=== PATIENT | male | born 1970 | race American Indian/Alaskan Native ===

== ENCOUNTER 2017-12-18 14:47 | Emergency (ER) | payer SELFPAY ==
[2017-12-18 17:07] LABS: Hematocrit 50.4 % (35.5-45.6); Hemoglobin 17.3 gm/dl (11.8-15.2); Mean Corpuscular HGB Conc 34 % (32-34); Mean Corpuscular Hemoglobin 34 pg (28-32); Mean Corpuscular Volume 98 fl (84-94); Platelet Count 252 K/mm3 (140-440); Red Blood Count 5.13 M/mm3 (3.65-5.03); Red Cell Distribution Width 13.1 % (13.2-15.2)
[2017-12-18 17:11] LABS: Bilirubin,Urine NEG (Negative); Blood,Urine NEG (Negative); Color,Urine Yellow (Yellow); Hyaline Casts,Urine 1 /LPF; Mucus,Urine FEW /HPF; Protein,Urine <15 mg/dL mg/dL (Negative); RBC,Urine < 1.0 /HPF (0.0-6.0); Urobilinogen,Urine < 2.0 mg/dL (<2.0); WBC,Urine < 1.0 /HPF (0.0-6.0)
[2017-12-18 17:16] LABS: BUN/Creatinine Ratio 8; Blood Urea Nitrogen 7 mg/dL (9-20); Calcium 9.5 mg/dL (8.4-10.2); Hemolysis Index 11
[2017-12-18 17:17] VITALS: BP 152/90
[2017-12-18 18:12] LABS: Amphetamine Screen,Urine PRESUMPTIVE NEGATIVE; Benzodiazepines Screen,Urine PRESUMPTIVE NEGATIVE; Cocaine Screen,Urine PRESUMPTIVE NEGATIVE; Methadone Screen,Urine PRESUMPTIVE NEGATIVE; Opiate Screen,Urine PRESUMPTIVE NEGATIVE
[2017-12-18 18:25] LABS: Cannabinoid Screen,Urine PRESUMPTIVE POSITIVE
--- NOTE | 2017-12-18 18:40 | Emergency Department Report ---
ED Seizure HPI - General Chief Complaint: Seizure Stated Complaint: SEIZURE Time Seen by Provider: 12/18/17 16:48 Source: patient, EMS Mode of arrival: Stretcher Limitations: No Limitations - History of Present Illness Initial Comments: This is a 47-year-old gentleman with a past medical history significant for seizure disorder as well as hypertension and asthma with no past surgical history and who is an occasional smoker, alcohol user as well as partaking and occasional marijuana use for Relation. He states that he was in his usual state of health and had a seizure while he was sleeping. He does admit to being under a lot of stress at his job and with his social life. Mother of his child is apparently a source of stress for him as well. He reports that he was at [place] about a month ago and got medications but it was too expensive for him to fill. He states that this has happened before where he has had seizures in his sleep. They last for roughly 1 minute and then subside. Apparently his significant other who is the mother of his child called EMS. The patient was brought to the hospital. The patient is alert and oriented 3 without any distress at this time. He is able to recall the events. He is not postictal. He denies any vomiting or diarrhea does admit to some nausea. Denies chest pain or shortness of breath. He admits to being anxious. Complaint: seizure -: Sudden, minutes(s) (1) Description of Episode: tonic-clonic movement -: minutes(s) (1) Seizure History: known seizure disorder Place: home Possible Precipitating Event: medication (ran out of medication) Associated Symptoms: denies other symptoms (except for nausea.) Treatments Prior to Arrival: none - Related Data Allergies Allergy/AdvReac Type Severity Reaction Status Date / Time No Known Allergies Allergy Unverified 12/18/17 15:44 ED Review of Systems ROS: Stated complaint: SEIZURE Other details as noted in HPI Comment: All other systems reviewed and negative Constitutional: see HPI Eyes: as per HPI ENT: as per HPI Respiratory: see HPI Cardiovascular: as per HPI Endocrine: see HPI Gastrointestinal: as per HPI Genitourinary: as per HPI Musculoskeletal: as per HPI Skin: as per HPI Neurological: as per HPI Psychiatric: as per HPI Hematological/Lymphatic: as per HPI ED Past Medical Hx - Past Medical History Previous Medical History?: Yes Hx Seizures: Yes Hx Asthma: Yes - Social History Smoking Status: Smoker, Current Status Unknown Substance Use Type: Alcohol, Marijuana ED Physical Exam - General Limitations: No Limitations General appearance: alert, in no apparent distress - Head Head exam: Present: atraumatic, normocephalic, normal inspection - Eye Eye exam: Present: normal appearance, PERRL, EOMI - ENT ENT exam: Present: normal exam, normal orophraynx - Neck Neck exam: Present: normal inspection, full ROM - Respiratory Respiratory exam: Present: normal lung sounds bilaterally. Absent: respiratory distress, wheezes, rales, rhonchi - Cardiovascular Cardiovascular Exam: Present: regular rate, normal rhythm, normal heart sounds - GI/Abdominal GI/Abdominal exam: Present: soft - Rectal Rectal exam: Present: deferred - Extremities Exam Extremities exam: Present: normal inspection, full ROM - Back Exam Back exam: Present: normal inspection, full ROM - Neurological Exam Neurological exam: Present: alert, oriented X3, CN II-XII intact - Psychiatric Psychiatric exam: Present: normal affect, normal mood, anxious - Skin Skin exam: Present: warm, dry, intact, normal color ED Course Vital Signs 12/18/17 17:16 Temperature 98.1 F Pulse Rate 72 Respiratory 18 Rate Blood Pressure 152/90 [Left] O2 Sat by Pulse 99 Oximetry - Reevaluation(s) Reevaluation #1: 12/18/17 18:36 The patient has not had any type of seizure activity here in the emergency room. He has been cooperative and has been able to follow commands and is alert and oriented 3. I explained to him that we can prescribe her medications today that are inexpensive for his seizure disorder but that he will need to follow up with his primary care physician and his neurologist. He expresses understanding. His concern is is that he will from his seizure disorder. I explained to him that he should get treatment and stay on treatment that works for him and have regular follow-ups. I advised him to not drive a motor vehicle. Advised to not operate any heavy machinery. He expresses understanding. Today I will start the patient on Dilantin 200mg PO BID. We will also give him 1 mg of Ativan here in the emergency room. He is to follow-up with his primary care doctor of choice within the next 48 hours. ED Medical Decision Making - Lab Data Result diagrams: 12/18/17 16:57 12/18/17 16:57 Critical care attestation.: If time is entered above; I have spent that time in minutes in the direct care of this critically ill patient, excluding procedure time. ED Disposition Clinical Impression: Seizure disorder Disposition: -01 TO HOME OR SELFCARE Is pt being admited?: No Does the pt Need Aspirin: No Condition: Stable Instructions: Recurrent Seizures Adult (ED) Additional Instructions: Rest, fluids, take medications as prescribed, return as needed, watch for worsening, or new symptoms, follow up with your primary care doctor or neurologist within 24 - 48 hours, do not drive a motor vehicle or operate heavy machinery. Referrals: PRIMARY CARE, [Primary Care Provider] - 3-5 Days
[2017-12-18] MEDS ORDERED: ATIVAN IV ONE (18:42)
== END 2017-12-18 19:28 | disposition home or self-care (01) ==
LOC: ED 14:47
DX: G40.909 Epilepsy, unspecified, not intractable, without status epilepticus (principal); F12.10 Cannabis abuse, uncomplicated
CPT/HCPCS: 36415; 80048; 80185; 80307; 81001; 82962; 85027; 96374; 99284; G0480; J2060; 80320

== ENCOUNTER 2017-12-27 09:20 | Emergency (ER) | payer OTHER ==
[2017-12-27] MEDS ORDERED: KEPPRA 1,000 MG/NS 0.75% 100ML 1,000 MG/100 ML BAG IV ONE ×2 (09:50→10:03)
[2017-12-27 10:09] LABS: Basophils % (Auto) 1.2 % (0.0-1.8); Eosinophils # (Auto) 0.3 K/mm3 (0.0-0.4); Eosinophils % (Auto) 8.1 % (0.0-4.3); Hematocrit 47.9 % (35.5-45.6); Lymphocytes # (Auto) 1.4 K/mm3 (1.2-5.4); Lymphocytes % (Auto) 34.6 % (13.4-35.0); Mean Corpuscular HGB Conc 33 % (32-34); Mean Corpuscular Hemoglobin 34 pg (28-32); Mean Corpuscular Volume 101 fl (84-94); Monocytes # (Auto) 0.3 K/mm3 (0.0-0.8); Platelet Count 217 K/mm3 (140-440); Red Blood Count 4.77 M/mm3 (3.65-5.03); Red Cell Distribution Width 13.6 % (13.2-15.2)
[2017-12-27 10:23] LABS: Alanine Aminotransferase 20 units/L (7-56); Albumin 4.4 g/dL (3.9-5); BUN/Creatinine Ratio 11; Blood Urea Nitrogen 9 mg/dL (9-20); Calcium 8.9 mg/dL (8.4-10.2); Hemolysis Index 27
[2017-12-27] MEDS ORDERED: NACL 0.9% 0 ML IR ONE (11:09)
--- NOTE | 2017-12-27 11:33 | Cat Scan Report ---
CT HEAD WITHOUT CONTRAST: HISTORY: Seizure. TECHNIQUE: Sequential 2.5mm CT images. COMPARISON: none. FINDINGS: Cerebral Parenchyma: Within normal limits. Cerebellum: Within normal limits. Brainstem: Within normal limits. Ventricles: Normal. Sella: Normal. Extra-axial spaces: Normal. Basal Cisterns: Normal. Intracranial Hemorrhage: None. Midline Shift: None. Calvarium: Normal. Sinuses: Normal. Mastoid Air Cells: Normal. Visualized Orbits: Normal. IMPRESSION: Cranial CT scan within normal limits.
[2017-12-27] MEDS ORDERED: TORADOL IV ONE (11:43)
--- NOTE | 2017-12-27 11:49 | Emergency Department Report ---
ED Seizure HPI - General Chief Complaint: Seizure Stated Complaint: SEIZURE Time Seen by Provider: 12/27/17 10:33 Source: EMS Mode of arrival: Stretcher Limitations: Other - History of Present Illness Initial Comments: 47-year-old male with a past medical history of seizures presents to the hospital complaining of procedure prior to arrival. Patient has been noncompliant with seizure medication due to cost. He was recently seen and evaluated here December 18 for seizure and prescribed Dilantin. Patient states he was planning to fill the medication today since he has money for the meds at this time. Triage indicates that patient has a brain tumor but patient deniesthat he has a family history of brain tumors but not a personal history. He has had seizures for many years. He complains of headache since his last seizure on the and generalized upper posterior thorax and shoulder pain since this seizure and fall. Pain is rated at 9/10 intensity, constant, and worse with movement. - Related Data Previous Rx's Medication Instructions Recorded Last Taken Type Phenytoin Sodium Extended 200 mg PO BID #60 capsule 12/18/17 Unknown Rx [Dilantin] Allergies Allergy/AdvReac Type Severity Reaction Status Date / Time No Known Allergies Allergy Verified 12/27/17 09:59 ED Review of Systems ROS: Stated complaint: SEIZURE Other details as noted in HPI Comment: All other systems reviewed and negative Other: Constitutional: No fevers chills Eyes: No eye pain visual changes ENT: No ear pain or throat pain Neck: Denies pain Respiratory: Denies cough wheezing shortness of breath Cardiovascular: Denies chest pain, palpitations, syncope GI: Denies abdominal pain, nausea, vomiting, diarrhea : Denies dysuria Musculoskeletal: as per hpi Skin: Denies rash, lesions, erythema Neurologic: Denies numbness, weakness Psychiatric: Denies suicidal ideation, hallucinations ED Past Medical Hx - Past Medical History Hx Seizures: Yes Hx Asthma: Yes - Social History Smoking Status: Current Some Day Smoker Substance Use Type: Alcohol, Marijuana - Medications Home Medications: Home Medications Medication Instructions Recorded Confirmed Last Taken Type Phenytoin Sodium Extended 200 mg PO BID #60 capsule 12/18/17 Unknown Rx [Dilantin] ED Physical Exam - General Limitations: Other - Other Other exam information: General: No limitations, patient is alert in no acute distress Head exam: Atraumatic, normocephalic Eyes exam: Normal appearance, pupils equal reactive to light, extraocular movements intact ENT: Moist mucous membrane, no tongue laceration Neck exam: Normal inspection, full range of motion, no meningismus nontender Respiratory exam: Clear to auscultation bilateral, no wheezes, rales, crackles Cardiovascular: Normal rate and rhythm, normal heart sounds Abdomen: Soft, nondistended, and nontender, with normal bowel sounds, no rebound, or guarding Extremity: Full range of motion normal inspection no deformity Back: Normal Inspection, full range of motion, no ecchymosis or contusion. Tenderness to upper/thoracic back. Neurologic: Alert, oriented x3, cranial nerves intact, no motor or sensory deficit Psychiatric: normal affect, normal mood Skin: Warm, dry, intact ED Course Vital Signs 12/27/17 12/27/17 12/27/17 09:32 09:40 09:46 Temperature 98.4 F Pulse Rate 86 71 64 Respiratory 12 13 Rate Blood Pressure 147/104 147/104 Blood Pressure 147/104 [Right] O2 Sat by Pulse 100 100 Oximetry 12/27/17 12/27/17 12/27/17 10:00 10:16 10:45 Temperature Pulse Rate 58 L 71 Respiratory 10 L 11 L Rate Blood Pressure 157/102 157/102 157/102 Blood Pressure [Right] O2 Sat by Pulse 100 100 100 Oximetry 12/27/17 12/27/17 12/27/17 11:00 11:16 11:30 Temperature Pulse Rate Respiratory Rate Blood Pressure 115/76 157/102 107/70 Blood Pressure [Right] O2 Sat by Pulse 99 99 98 Oximetry 12/27/17 11:46 Temperature Pulse Rate Respiratory Rate Blood Pressure 107/70 Blood Pressure [Right] O2 Sat by Pulse 99 Oximetry - Reevaluation(s) Reevaluation #1: 12/27/17 11:46 prior to my evaluation patient received Keppra 12/27/17 13:06 patient stable without seizure activity ED Medical Decision Making - Lab Data Result diagrams: 12/27/17 09:52 12/27/17 09:52 Lab Results 12/27/17 12/27/17 12/27/17 Range/Units 09:52 09:52 09:52 WBC 3.9 L (4.5-11.0) K/mm3 RBC 4.77 (3.65-5.03) M/mm3 Hgb 16.0 H (11.8-15.2) gm/dl Hct 47.9 H (35.5-45.6) % MCV 101 H (84-94) fl MCH 34 H (28-32) pg MCHC 33 (32-34) % RDW 13.6 (13.2-15.2) % Plt Count 217 (140-440) K/mm3 Lymph % (Auto) 34.6 (13.4-35.0) % Summers % (Auto) 7.0 (0.0-7.3) % Eos % (Auto) 8.1 H (0.0-4.3) % Baso % (Auto) 1.2 (0.0-1.8) % Lymph # 1.4 (1.2-5.4) K/mm3 Summers # 0.3 (0.0-0.8) K/mm3 Eos # 0.3 (0.0-0.4) K/mm3 Baso # 0.0 (0.0-0.1) K/mm3 Seg Neutrophils % 49.1 (40.0-70.0) % Seg Neutrophils # 1.9 (1.8-7.7) K/mm3 Sodium 137 (137-145) mmol/L Potassium 4.2 (3.6-5.0) mmol/L Chloride 98.2 (98-107) mmol/L Carbon Dioxide 27 (22-30) mmol/L Anion Gap 16 mmol/L BUN 9 (9-20) mg/dL Creatinine 0.8 (0.8-1.5) mg/dL Estimated GFR > 60 ml/min BUN/Creatinine Ratio 11 % Glucose 78 (75-100) mg/dL Calcium 8.9 (8.4-10.2) mg/dL Magnesium 2.10 (1.7-2.3) mg/dL Total Bilirubin 0.40 (0.1-1.2) mg/dL AST 27 (5-40) units/L ALT 20 (7-56) units/L Alkaline Phosphatase 73 (35-129) units/L Total Protein 7.2 (6.3-8.2) g/dL Albumin 4.4 (3.9-5) g/dL Albumin/Globulin Ratio 1.6 % Phenytoin (10.0-20.0) ug/mL 12/27/17 Range/Units 10:39 WBC (4.5-11.0) K/mm3 RBC (3.65-5.03) M/mm3 Hgb (11.8-15.2) gm/dl Hct (35.5-45.6) % MCV (84-94) fl MCH (28-32) pg MCHC (32-34) % RDW (13.2-15.2) % Plt Count (140-440) K/mm3 Lymph % (Auto) (13.4-35.0) % Summers % (Auto) (0.0-7.3) % Eos % (Auto) (0.0-4.3) % Baso % (Auto) (0.0-1.8) % Lymph # (1.2-5.4) K/mm3 Summers # (0.0-0.8) K/mm3 Eos # (0.0-0.4) K/mm3 Baso # (0.0-0.1) K/mm3 Seg Neutrophils % (40.0-70.0) % Seg Neutrophils # (1.8-7.7) K/mm3 Sodium (137-145) mmol/L Potassium (3.6-5.0) mmol/L Chloride (98-107) mmol/L Carbon Dioxide (22-30) mmol/L Anion Gap mmol/L BUN (9-20) mg/dL Creatinine (0.8-1.5) mg/dL Estimated GFR ml/min BUN/Creatinine Ratio % Glucose (75-100) mg/dL Calcium (8.4-10.2) mg/dL Magnesium (1.7-2.3) mg/dL Total Bilirubin (0.1-1.2) mg/dL AST (5-40) units/L ALT (7-56) units/L Alkaline Phosphatase (35-129) units/L Total Protein (6.3-8.2) g/dL Albumin (3.9-5) g/dL Albumin/Globulin Ratio % Phenytoin 0.9 L (10.0-20.0) ug/mL - Radiology Data Radiology results: report reviewed ct head: naf - Medical Decision Making Seizure Due to medication noncompliance Ct head negative Patient received Keppra and Dilantin in the ED Toradol muscular skeletal pain Encouraged to fill his prescription, take as prescribed and follow up - Differential Diagnosis seizure, medication noncompliance, electrolyte abnl Critical Care Time: No Critical care attestation.: If time is entered above; I have spent that time in minutes in the direct care of this critically ill patient, excluding procedure time. ED Disposition Clinical Impression: Seizure, Noncompliance with medication regimen Disposition: TO HOME OR SELFCARE Is pt being admited?: No Does the pt Need Aspirin: No Condition: Stable Instructions: Recurrent Seizures Adult (ED) Additional Instructions: Take the seizure medication as prescribed. Take [id number] Motrin or Tylenol as needed for pain. Follow-up with the neurologist and primary care/ clinic provided. Return is symptoms worsen. Referrals: DOMINIC LOZANO MD [Staff Physician] - 3-5 Days (neurologist) RENETTA COOLEY MD [Staff Physician] - 3-5 Days (Neurologist) [facility] [Provider Group] - 3-5 Days (Primary care clinic) Time of Disposition: 13:06
[2017-12-27] MEDS ORDERED: DILANTIN 1,000 MG in NACL 0.9% 250ML 250 ML IV ONE (12:00)
[2017-12-27 13:16] VITALS: BP 119/80
== END 2017-12-27 14:54 | disposition home or self-care (01) ==
LOC: ED 09:20
DX: R56.9 Unspecified convulsions (principal); R51 Headache; M54.6 Pain in thoracic spine; M25.519 Pain in unspecified shoulder; J45.909 Unspecified asthma, uncomplicated; F17.200 Nicotine dependence, unspecified, uncomplicated; F12.10 Cannabis abuse, uncomplicated; Z91.14 Patient's other noncompliance with medication regimen; W19.XXXA Unspecified fall, initial encounter; Y93.89 Activity, other specified; Y99.8 Other external cause status; Y92.89 Other specified places as the place of occurrence of the external cause
CPT/HCPCS: 36415; 70450; 80053; 80185; 83735; 85025; 96365; 96375; 99285; J1165; J1885; J1953; J7050